=== PATIENT | male | born 1990 | race Caucasian/White ===

== ENCOUNTER 2017-07-21 19:40 | Emergency (ER) | payer OTHER ==
[~2017-07-21] VITALS: Ht 213.4 cm; Wt 145.1 kg
--- NOTE | 2017-07-21 20:13 | NUR ---
ESTELLERA 89 FROM HOME FOR WITNESSED TONIC CLONIC SEIZURE LASTING 5 MINS. LAST SEIZURE 20 YRS AGO, NO MEDS. FIELD BS 94. PT IS AAOX4. RESP EVEN AND UNLABORED. SKIN WNL. PT DENIES HITTING HIS HEAD, -KO. PT'S FAMILY MEMBER STATES THE PT HAD THE SEIZURE ON THE COUCH. PT DENIES ANY PAIN. PT STATES HE IS HAVING A PRESSURE LIKE HEADACHE. NO S/S OF ACUTE DISTRESS NOTED. VSS. MD BEDSIDE FOR EVAL. EMT BEDSIDE FOR EKG
[2017-07-21 20:57] LABS: BASOPHILS # (AUTO) 0.1 /CMM (0.0-0.2); BASOPHILS % (AUTO) 0.8 % (0.0-2.0); EOSINOPHILS # (AUTO) 0.1 /CMM (0.0-0.7); EOSINOPHILS % (AUTO) 0.6 % (0.0-6.0); HEMATOCRIT 45 % (39-51); HEMOGLOBIN 15.5 g/dL (13.5-17.5); LYMPHOCYTES # (AUTO) 1.3 /CMM (0.8-4.8); LYMPHOCYTES % (AUTO) 15.7 % (20.0-44.0); MEAN CORPUSCULAR HEMOGLOBIN 30 PG (26.0-33.0); MEAN CORPUSCULAR HGB CONC 35 g/dl (31.0-36.0); MEAN CORPUSCULAR VOLUME 86 fL (80-96); MONOCYTES # (AUTO) 0.8 /CMM (0.1-1.30); MONOCYTES % (AUTO) 9.4 % (2.0-12.0); NEUTROPHILS # (AUTO) 6.2 /CMM (1.8-8.9); NEUTROPHILS % (AUTO) 73.5 % (43.0-81.0); PLATELET COUNT (AUTO) 253 /CMM (150-450); RDW COEFFICIENT OF VARIATION 11.5 (11.5-15.0); RED BLOOD CELL COUNT(AUTO) 5.22 MIL/uL (4.5-6.0); WHITE BLOOD COUNT (AUTO) 8.5 K/uL (4.3-11.0)
[2017-07-21 21:11] LABS: CALCIUM, SERUM 8.9 mg/dL (8.5-10.1); CREATININE 1.3 mg/dL (0.6-1.3); POTASSIUM 3.5 mmol/L (3.5-5.1)
[2017-07-21 21:17] LABS: ALBUMIN 3.8 g/dL (3.4-5.0); BILIRUBIN,DIRECT 0.1 mg/dL (0.0-0.2); BILIRUBIN,TOTAL 0.3 mg/dL (0.2-1.0); TOTAL PROTEIN, SERUM 7.4 g/dL (6.4-8.2)
--- NOTE | 2017-07-21 22:06 | NUR ---
IV removed. Catheter intact and site benign. Pressure and 4x4 applied to site. No bleeding noted.Patient discharged to home in stable condition. Written and verbal after care instructions given. Patient verbalizes understanding of instruction. Pt's girlfriend is at the bedside and is driving pt home. vss. Pt ambulated out with a steady gait. vss
[2017-07-21 22:07] VITALS: BP 138/85
== END 2017-07-21 22:08 | disposition home or self-care (01) ==
LOC: ER 19:42
DX: G40.909 Epilepsy, unspecified, not intractable, without status epilepticus (principal); F12.10 Cannabis abuse, uncomplicated; Z60.2 Problems related to living alone; Z87.891 Personal history of nicotine dependence
CPT/HCPCS: 36415; 70450-TC; 71045-TC; 80048-TC; 80076-TC; 84484-TC; 85025-TC; A4606; Z7610